=== PATIENT | female | born 1950 | race Caucasian/White ===

== ENCOUNTER 2021-10-25 09:19 | Emergency (ER) | payer OTHER ==
[~2021-10-25] VITALS: Ht 165.1 cm; Wt 86.2 kg
[2021-10-25 09:40] VITALS: BP 148/81
--- NOTE | 2021-10-25 10:06 | NUR ---
PATIENT LEFT WITHOUT BEING SEEN BY DR. BERMEO. NO FURTHER CARE PROVIDED FOR PATIENT.
== END 2021-10-25 10:06 | disposition left against medical advice (07) ==
LOC: MED 09:19
DX: M25.531 Pain in right wrist (principal); Z53.21 Procedure and treatment not carried out due to patient leaving prior to being seen by health care provider

== ENCOUNTER 2022-04-14 17:11 | Emergency (ER) | payer OTHER ==
[~2022-04-14] VITALS: Ht 165.1 cm; Wt 81.2 kg
[2022-04-14 17:13] VITALS: BP 154/81
--- NOTE | 2022-04-14 17:16 | NUR ---
PT STATES THAT SHE IS NOT WILLING TO WAIT AND THAT SHE WILL GO
--- NOTE | 2022-04-14 17:17 | NUR ---
PT SEEN WALKING OUT OF THE ER
--- NOTE | 2022-04-14 17:18 | NUR ---
PATIENT LEFT WITHOUT BEING SEEN BY DR. CUEVAS. NO FURTHER CARE PROVIDED FOR PATIENT.
== END 2022-04-14 17:18 | disposition left against medical advice (07) ==
LOC: MED 17:11
DX: R06.02 Shortness of breath (principal); Z53.21 Procedure and treatment not carried out due to patient leaving prior to being seen by health care provider

== ENCOUNTER 2022-09-07 19:48 | Emergency (ER) | payer OTHER ==
[~2022-09-07] VITALS: Ht 157.5 cm; Wt 68.0 kg
--- NOTE | 2022-09-07 19:54 | NUR ---
PT PROMISE ALS. TAKEN TO BED 5
--- NOTE | 2022-09-07 19:58 | NUR ---
Heather hernández in ED - 09/07/[address] Keys examining patient.
--- NOTE | 2022-09-07 19:58 | NUR ---
Dr. Hunt examining patient.
--- NOTE | 2022-09-07 20:10 | NUR ---
PT TAKEN TO RADIOLOGY
--- NOTE | 2022-09-07 20:16 | NUR ---
PT RETURN FROM RADIOLOGY
[2022-09-07 20:20] VITALS: BP 126/62; PULSE 107; RESP 18; TEMP 98.3; O2SAT 97
[2022-09-07 20:29] LABS: BASOPHILS % (AUTO) 0.3 % (0.0-2.0); EOSINOPHILS % (AUTO) 0.3 % (0.0-4.0); HEMATOCRIT 39.7 % (36-48); HEMOGLOBIN 13.8 g/dL (12.0-16.0); LYMPHOCYTES # (AUTO) 0.4 K/uL (2.5-16.5); LYMPHOCYTES % (AUTO) 4.4 % (20.5-51.1); MEAN CORPUSCULAR HEMOGLOBIN 31 pg (27-31); MEAN CORPUSCULAR HGB CONC 35 g/dL (33-37); MEAN CORPUSCULAR VOLUME 90.3 fL (80-94); MONOCYTES # (AUTO) 0.2 K/uL (0.8-1.0); MONOCYTES % (AUTO) 2.9 % (1.7-9.3); NEUTROPHILS # (AUTO) 7.5 K/uL (1.8-7.7); NEUTROPHILS % (AUTO) 92.1 % (42.2-75.2); PLATELET COUNT (AUTO) 146 K/uL (140-450); RED BLOOD CELL COUNT(AUTO) 4.39 MIL/uL (4.20-5.40); RED CELL DISTRIBUTION WIDTH 13.4 % (11.6-13.7); WHITE BLOOD COUNT (AUTO) 8.2 K/uL (4.8-10.8)
[2022-09-07] MEDS ORDERED: NACL 0.9% 1,000 ML IV ONE (20:40)
[2022-09-07 20:48] LABS: ALBUMIN 3.5 g/dL (3.4-5.0); ANION GAP 15.6 (8-16); ASPARTATE AMINOTRANSFERASE 39 U/L (15-37); CARBON DIOXIDE 24.9 mmol/L (21-32); CHLORIDE 101 mmol/L (98-107); CREATININE 0.8 mg/dL (0.6-1.3); GLUCOSE 168 mg/dL (74-106); LIPASE 92 U/L (73-393); POTASSIUM 3.5 mmol/L (3.5-5.1); SODIUM SERUM 138 mmol/L (136-145); TOTAL BILIRUBIN 1.5 mg/dL (0.0-1.0); UREA NITROGEN, BLOOD 16 mg/dL (7-18)
[2022-09-07] MEDS ORDERED: ONDANSETRON 4 MG ODT PO ONE (23:30)
[2022-09-07] MEDS ORDERED: ONDA-188 SL (23:35)
[2022-09-07 23:50] VITALS: BP 121/67; PULSE 97; RESP 16; TEMP 98.3; O2SAT 97
--- NOTE | 2022-09-07 23:59 | NUR ---
Patient discharged with v/s stable. Written and verbal after care instructions given and explained. Patient alert, oriented and verbalized understanding of instructions. Ambulatory with steady gait. All questions addressed prior to discharge. ID band removed. Patient advised to follow up with PMD. Rx of Zofran sent to preferred pharmacy. Patient educated on indication of medication including possible reaction and side effects. Opportunity to ask questions provided and answered.
== END 2022-09-07 23:59 | disposition home or self-care (01) ==
LOC: MED 19:48
DX: R11.2 Nausea with vomiting, unspecified (principal); E86.0 Dehydration; R19.7 Diarrhea, unspecified; R35.0 Frequency of micturition; E11.9 Type 2 diabetes mellitus without complications; E03.9 Hypothyroidism, unspecified; Z79.899 Other long term (current) drug therapy; Z88.5 Allergy status to narcotic agent; Z90.49 Acquired absence of other specified parts of digestive tract; Z98.890 Other specified postprocedural states
CPT/HCPCS: 36415; 71045; 80053; 81002; 83690; 84484; 85025; 93005; 96360; 99285; J7030; Q0162